=== PATIENT | female | born 1930 | race Caucasian/White ===

== ENCOUNTER → 2020-01-31 | Outpatient (CLI) | payer OTHER ==
[~2020-01-31] MED LIST: ACCUNEB SO1.25 MG/1; ALENDRONATE SOD35 MG PO; BAYER CHEWABLE81 MG PO; CALCIUM 500 +1 EAC5 PO; ESTRACE0.5 MG PO; FISH OIL 1,001000 M2 PO; FOLIC ACID1 MG PO; IRON325 PO; NORCO 5-325 TA1 EACH PO; VITAMIN D1000 UNI1 PO; ZOCOR20 MG PO
== END ==
LOC: RAD 16:22
DX: M47.818 Spondylosis without myelopathy or radiculopathy, sacral and sacrococcygeal region (principal); M85.88 Other specified disorders of bone density and structure, other site; M54.41 Lumbago with sciatica, right side